=== PATIENT | female | born 1985 | race Caucasian/White ===

== ENCOUNTER 2019-08-12 14:52 | Emergency (ER) | payer OTHER ==
--- OUTSIDE RECORDS SUMMARY | 2019-08-12 15:09 | XMS REPORT | Continuity of Care Document ---
:1985 External Reference #:[id number] Author Name Neal Chappell M.D. Address [address] [place] [id number] Care Team Providers Name Role Phone Mansoor Garcia MD - Otolaryngology Care Team Information Bioengineer [phone] Fiona Jay NP - Nurse Care Team Information Bioengineer Practitioner Problems Active Problems Provider Date Bipolar disorder Fiona Jay FNP Onset: 02/26/2018 Hypothyroidism Aubree Pond DO Onset: 03/31/2015 Cyst of ovary Aubree Wheeler RPAC Onset: 10/19/2014 Cigarette smoker Aubree Wheeler RPAC Onset: 10/19/2014 Sacroiliac joint pain Aubree Wheeler RPAC Onset: 09/29/2014 Purpuric disorder Aubree Pond DO Onset: 03/31/2015 Abdominal aortic aneurysm Fiona Jay FNP Onset: 07/26/2016 Note: 4.2 CM Document: 07/26/16 - CT Angio Chest W/ IV Contrast Document: 09/25 - CT Angio Chest Document: 12/16/17 - CT Angio Chest 4.3 cm Document: 03/23/18 - CT Angio Chest 3.8 cm 04/2019 Document: 04/17/19 - CT Angio Chest Bipolar I disorder, most recent episode Fiona Jay FNP Onset: 05/2018 hypomanic Panic disorder without agoraphobia Fiona Jay FNP Onset: 2017 Social History Type Date Description Comments Sex Unknown Tobacco Use Start: Unknown Patient is a current cigarette smoker, smokes every day Tobacco Use Start: Unknown Current Cigarette Smoker 5-10 Cigarettes Daily ETOH Use Denies alcohol use Tobacco Use Start: 11/10/10 Light tobacco smoker (10 Has quit in the or fewer cigarettes/day) past, cold turkey for pregnancies. Longest time quit x 2 months. Tried patches = allergic reaction. Chantix = rahul & night espinoza. Recreational Drug Use Denies Drug Use Smoking Status Reviewed: 06/08/18 Light tobacco smoker (10 Has quit in the or fewer cigarettes/day) past, cold turkey for pregnancies. Longest time quit x 2 months. Tried patches = allergic reaction. Chantix = rahul & night espinoza. Allergies, Adverse Reactions, Alerts Description No Known Drug Allergies Medications Active Medications SIG Qnty Indications Ordering Provider Date Buspirone HCL take 1 to 2 90tabs F41.0 Misty, 04/27/2018 5mg Tablets tablet by mouth Fiona, three times a [employer]ALL [employer]SEM[employer]ER day as needed *for anxiety and panic Levothyroxine Sodium 1 by mouth every Mansoor Garcia MD 03/17/2018 day *in place of 125mcg Tablets 100 mcg dose Fluoxetine HCL take 1 capsule 30caps F31.0 Misty, 07/17/2016 20mg by mouth once Jennifermoise, Capsules daily [employer]ALL [employer]ER Pantoprazole Sodium Take 1 Tablet By Unknown 40mg Mouth Twice Tablets DR Daily Nexium 24HR 1 by mouth every Unknown 20mg Capsules day DR History Medications Lorazepam 1/2 to 1 tablet 15tabs F41.0 Fiona Jay, 02/12/2019 - 0.5mg by mouth as [employer]ALL ASSEM[employer]ER 08/02/2019 Tablets needed panic attack Reference #: [id number] Medications Administered in Office Medication SIG Qnty Indications Ordering Provider Date PPD Injection Family Nurse 02/27/2018 Immunizations CPT Code Status Date Vaccine Lot # [id number] Given 02/26/2018 Tdap injection [id number] Given 12/08/2017 Influenza Virus Vaccine Quadrivalent Iiv4 Split [id number] Preser Free Id [id number] Given 12/20/2015 Influenza Vaccine (Fluzone) Age 3 And Older [id number] Given 07/30/2012 flu vaccination [id number] Refused 11/18/2017 Influenza Virus Vaccine Quadrivalent Iiv4 Split Preser Free Id Vital Signs Date Vital Result Comment 08/02/2019 9:07am BP Systolic 115 mmHg BP Diastolic 81 mmHg Heart Rate 82 /min Height 68 inches 5'8" Weight 172.00 lb BMI (Body Mass Index) 26.1 kg/m2 BSA (Body Surface Area) 1.92 m2 Sidney body weight in kilograms 63 kg O2 % BldC Oximetry 99 % 06/08/2018 1:23pm Height 68 inches 5'8" Weight 174.25 lb BMI (Body Mass Index) 26.5 kg/m2 BSA (Body Surface Area) 1.93 m2 Sidney body weight in kilograms 63 kg Results Test Date Facility Test Result H/L Range Note CBC 07/23/2019 [facility] White Blood 3.7 K/uL Normal 3.1-10.7 1 W/Automated [address] [place] [address] [phone] Red Blood Count 3.83 M/uL Low 3.90-5.40 Hemoglobin 12.8 gm/dL Normal 11.6-15.8 Hematocrit 35.5 % Low 36.0-46.1 Mean Cell Volume 92.7 fl Normal 80.9-99.0 Mean Corpuscular HGB 33.4 pg High 25.9-32.7 Mean Corpuscular HGB Conc 36.1 g/dL High 30.8-34.3 Platelet Count 142 K/uL Low 155-360 Red Cell Distri Width SD 39.4 fl Normal 36-47 Red Cell Distri Width %CV 11.7 % Normal 11.7-14.4 Mean Platelet Volume 9.5 fl Normal 8.9-12.4 Neut% 65.9 % Normal 40.4-72.8 Lymph % 27.1 % Normal 20.0-42.0 Monona % 5.9 % Normal 4.3-13.2 Eo% 0.5 % Normal 0.0-6.6 Bas% 0.3 % Normal 0.0-1.1 Immature Grans 0.3 % Normal 0.0-5.0 NRBC % 0.0 /100WBC < 10/ 100 WBC Neut# 2.46 K/uL Normal 1.8-7.0 Lymph # 1.01 K/uL Normal 1.0-4.0 Monona # 0.22 K/uL Low 0.3-0.9 Eos # 0.02 K/uL Normal 0.0-0.5 Baso # 0.01 K/uL Normal 0.0-0.1 Immature Grans Absolute 0.01 K/uL NRBC # 0.00 K/uL Comprehensive 07/23/2019 [facility] Glucose 82 mg/dL Normal 74-106 Metabolic Panel [address] [place] [address] [phone] BUN 10 mg/dL Normal 7-18 Creatinine 0.8 mg/dL Normal 0.6-1.3 Glom Filtration Rate, Estimate >60 mL/min >60 If >60 mL/min >60 2 BUN/Creat 12.5 ratio Sodium 140 mmol/L Normal 136-145 Potassium 3.9 mmol/L Normal 3.5-5.1 Chloride 112 mmol/L High 98-107 Carbon Dioxide 24 mmol/L Normal 21-32 Anion Gap 4 mEq/L Low 8-16 Calcium 8.3 mg/dL Low 8.5-10.1 Total Protein 6.8 g/dL Normal 6.4-8.2 Albumin 3.4 g/dL Normal 3.4-5.0 Globulin 3.4 g/dL Normal 1.9-4.3 Alb/Glob 1.0 ratio Bilirubin,Total 0.4 mg/dL Normal 0.2-1.0 Sgot/Ast 9 U/L Low 15-37 3 SGPT/Alt 12 U/L Normal 12-78 Alkaline Phosphatase 64 U/L Normal 45-117 Laboratory test finding 07/23/2019 PSYCHIATRIC Lipase 106 U/L Normal 56-289 [address] [place] [address] [phone] HCG,Serum (Qualitative) NEGATIVE (Negative) 4 Escherichia Coli 07/20/2019 PSYCHIATRIC Nitrofurantoin <=16 Susceptible 5 [address] [place] [address] [phone] Trimethoprim/Sulfamethoxazole <=20 Susceptible Ampicillin >=32 Resistant Cefazolin 8 Susceptible Ampicillin/Sulbactam >=32 Resistant Ciprofloxacin <=0.25 Susceptible Piperacillin/Tazobactam 8 Susceptible Ceftazidime <=1 Susceptible Ceftriaxone <=1 Susceptible Cefepime <=1 Susceptible Levofloxacin <=0.12 Susceptible Imipenem <=0.25 Susceptible Gentamicin <=1 Susceptible Tobramycin <=1 Susceptible Urine Culture 07/20/2019 PSYCHIATRIC Urine Culture ESCHERICHIA COLI Abnormal 6 [address] [place] [id number] [phone] Quantity > 100,000 CFU/mL 7 Urine Culture MIXED URETHRAL F <SEE NOTE> 8 Quantity 10,000 - 50,000 <SEE NOTE> 9 Laboratory test 07/20/2019 PSYCHIATRIC Lipase 125 U/L Normal 56-289 finding [address] [place] [address] [phone] Comprehensive 07/20/2019 PSYCHIATRIC Glucose 92 mg/dL Normal 74-106 Metabolic Panel [address] [place] [address] [phone] BUN 11 mg/dL Normal 7-18 Creatinine 0.8 mg/dL Normal 0.6-1.3 Glom Filtration Rate, Estimate >60 mL/min >60 If >60 mL/min >60 10 BUN/Creat 13.7 ratio Sodium 139 mmol/L Normal 136-145 Potassium 3.7 mmol/L Normal 3.5-5.1 Chloride 108 mmol/L High 98-107 Carbon Dioxide 25 mmol/L Normal 21-32 Anion Gap 6 mEq/L Low 8-16 Calcium 8.4 mg/dL Low 8.5-10.1 Total Protein 7.2 g/dL Normal 6.4-8.2 Albumin 4.0 g/dL Normal 3.4-5.0 Globulin 3.2 g/dL Normal 1.9-4.3 Alb/Glob 1.3 ratio Bilirubin,Total 0.3 mg/dL Normal 0.2-1.0 Sgot/Ast 9 U/L Low 15-37 11 SGPT/Alt 12 U/L Normal 12-78 Alkaline Phosphatase 68 U/L Normal 45-117 Culture If 07/20/2019 PSYCHIATRIC Culture If CULTURE TO 12 Indicated Comment [address] Indicated Comment FOLLO <[place] [address] NOTE> [phone] Source: URINE, CLEAN CAT <SEE NOTE> 13 Ua RFX Micro & 07/20/2019 PSYCHIATRIC Urine Color Light-Yellow Yellow Culture II [address] [place] [address] [phone] Urine Clarity Slightly Cloudy Clear Urine Glucose - Dipstick NEGATIVE mg/dL Negative Urine Bilirubin - Dipstick NEGATIVE Negative Urine Ketone NEGATIVE mg/dL Negative Urine Specific [place] 1.013 Normal 1.010-1.030 Urine Blood NEGATIVE 0-2 Urine PH 5.5 Low 6.5-7.5 Urine Protein - Dipstick NEGATIVE mg/dL Negative Urine Urobilinogen - Dipstick < 2.0 mg/dL < 2.0 Urine Nitrite - Dipstick POSITIVE Abnormal Negative Urine Leuk Esterase SMALL Abnormal Negative Urine RBC 0-2 rbc/hpf 0-2 Urine WBC 21-30 wbc/hpf 0-5 Urine Epithelial Cells MANY /lpf None Seen 14 Urine Bacteria MANY Abnormal None Seen Urine Mucus MODERATE None Seen Urine Sperm FEW None Seen Source: URINE, CLEAN CAT <SEE NOTE> 15 CBC W/Automated 07/20/2019 [facility] White Blood 5.5 K/uL Normal 3.1-10.[address] Count [place], [place] [id number] [phone] Red Blood Count 3.88 M/uL Low 3.90-5.40 Hemoglobin 13.0 gm/dL Normal 11.6-15.8 Hematocrit 36.2 % Normal 36.0-46.1 Mean Cell Volume 93.3 fl Normal 80.9-99.0 Mean Corpuscular HGB 33.5 pg High 25.9-32.7 Mean Corpuscular HGB Conc 35.9 g/dL High 30.8-34.3 Platelet Count 162 K/uL Normal 155-360 Red Cell Distri Width SD 40.1 fl Normal 36-47 Red Cell Distri Width %CV 11.9 % Normal 11.7-14.4 Mean Platelet Volume 9.9 fl Normal 8.9-12.4 Neut% 61.1 % Normal 40.4-72.8 Lymph % 30.7 % Normal 20.0-42.0 Monona % 6.9 % Normal 4.3-13.2 Eo% 0.9 % Normal 0.0-6.6 Bas% 0.2 % Normal 0.0-1.1 Immature Grans 0.2 % Normal 0.0-5.0 NRBC % 0.0 /100WBC < 10/ 100 WBC Neut# 3.37 K/uL Normal 1.8-7.0 Lymph # 1.69 K/uL Normal 1.0-4.0 Monona # 0.38 K/uL Normal 0.3-0.9 Eos # 0.05 K/uL Normal 0.0-0.5 Baso # 0.01 K/uL Normal 0.0-0.1 Immature Grans Absolute 0.01 K/uL NRBC # 0.00 K/uL CBC W/Automated 04/17/2019 [facility] White 5.5 K/uL Normal 3.1-10.7 16 Diff [address] [facility] [place] [address] Count [phone] Red Blood Count 4.27 M/uL Normal 3.90-5.40 Hemoglobin 13.9 gm/dL Normal 11.6-15.8 Hematocrit 39.1 % Normal 36.0-46.1 Mean Cell Volume 91.6 fl Normal 80.9-99.0 Mean Corpuscular HGB 32.6 pg Normal 25.9-32.7 Mean Corpuscular HGB Conc 35.5 g/dL High 30.8-34.3 Platelet Count 174 K/uL Normal 155-360 Red Cell Distri Width SD 39.4 fl Normal 36-47 Red Cell Distri Width %CV 11.9 % Normal 11.7-14.4 Mean Platelet Volume 10.5 fl Normal 8.9-12.4 Neut% 69.7 % Normal 40.4-72.8 Lymph % 21.0 % Normal 20.0-42.0 Monona % 7.5 % Normal 4.3-13.2 Eo% 0.9 % Normal 0.0-6.6 Bas% 0.5 % Normal 0.0-1.1 Immature Grans 0.4 % Normal 0.0-5.0 NRBC % 0.0 /100WBC < 10/ 100 WBC Neut# 3.81 K/uL Normal 1.8-7.0 Lymph # 1.15 K/uL Normal 1.0-4.0 Monona # 0.41 K/uL Normal 0.3-0.9 Eos # 0.05 K/uL Normal 0.0-0.5 Baso # 0.03 K/uL Normal 0.0-0.1 Immature Grans Absolute 0.02 K/uL NRBC # 0.00 K/uL Comprehensive Metabolic 04/17/2019 PSYCHIATRIC Glucose 69 mg/dL Low 74-[address] [place] [address] [phone] BUN 10 mg/dL Normal 7-18 Creatinine 0.8 mg/dL Normal 0.6-1.3 Glom Filtration Rate, Estimate >60 mL/min >60 If >60 mL/min >60 17 BUN/Creat 12.5 ratio Sodium 138 mmol/L Normal 136-145 Potassium 4.2 mmol/L Normal 3.5-5.1 Chloride 108 mmol/L High 98-107 Carbon Dioxide 25 mmol/L Normal 21-32 Anion Gap 5 mEq/L Low 8-16 Calcium 8.3 mg/dL Low 8.5-10.1 Total Protein 7.6 g/dL Normal 6.4-8.2 Albumin 3.8 g/dL Normal 3.4-5.0 Globulin 3.8 g/dL Normal 1.9-4.3 Alb/Glob 1.0 ratio Bilirubin,Total 0.4 mg/dL Normal 0.2-1.0 Sgot/Ast 15 U/L Normal 15-37 SGPT/Alt 15 U/L Normal 12-78 Alkaline Phosphatase 74 U/L Normal 45-117 Laboratory test 04/17/2019 PSYCHIATRIC Thyroid 5.32 uIU/mL High 0.30-4.[address] [place] [address] Hormone [phone] Protime 04/17/2019 PSYCHIATRIC Protime 13.5 Normal 12.0-14.[address] seconds [place], [place] [id number] [phone] Inr 1.0 Normal 0.9-1.1 18 Anticoagulant Therapy? Unknown Act Partial 04/17/2019 PSYCHIATRIC Act Partial 28.3 seconds Normal 23.4-35.[address] Thrombo Time [place], [place] [id number] [phone] Anticoagulant Therapy? Unknown 1 VOMITING, FEVER SINCE YESTERDAY 2 Note: Persistent reduction for 3 months or more in an eGFR <60 mL/min/1.73 m2 defines CKD. Patients with eGFR values >/=60 mL/min/1.73 m2 may also have CKD if evidence of persistent proteinuria is present. The original MDRD equation for estimated GFR is not valid for patients less than 18 years of age. Additional information may be found at www.kdoqi.org. 3 Values below the stated reference ranges of AST and ALT can be seen in normal populations. Clinical correlation is suggested. 4 Method: Quidel QuickVue One-Step Immunoassay 5 ABD PAIN, VOMITING, DIARRHEA, FEVER, HEADACHE 6 ESCHERICHIA COLI 7 > 100,000 CFU/mL 8 MIXED URETHRAL YANDY 9 10,000 - 50,000 CFU/mL 10 Note: Persistent reduction for 3 months or more in an eGFR <60 mL/min/1.73 m2 defines CKD. Patients with eGFR values >/=60 mL/min/1.73 m2 may also have CKD if evidence of persistent proteinuria is present. The original MDRD equation for estimated GFR is not valid for patients less than 18 years of age. Additional information may be found at www.kdoqi.org. 11 Values below the stated reference ranges of AST and ALT can be seen in normal populations. Clinical correlation is suggested. 12 CULTURE TO FOLLOW 13 URINE, CLEAN CATCH 14 POSSIBLE UROGENITAL CONTAMINATION. 15 URINE, CLEAN CATCH 16 LEGS SWELLING, BRUISES, CP YESTERDAY 17 Note: Persistent reduction for 3 months or more in an eGFR <60 mL/min/1.73 m2 defines CKD. Patients with eGFR values >/=60 mL/min/1.73 m2 may also have CKD if evidence of persistent proteinuria is present. The original MDRD equation for estimated GFR is not valid for patients less than 18 years of age. Additional information may be found at www.kdoqi.org. 18 THERAPEUTIC INR RANGE: 2.0 - 3.0 DVT, Pulmonary embolus, prophylaxis against venous thrombosis or systemic embolization in high risk patients. 2.5 - 3.5 Mechanical heart valves Procedures Description No Information Available Medical Devices Description No Information Available Encounters Description No Information Available Assessments Date Code Description Provider 08/02/2019 R10.12 Left upper quadrant pain Neal Chappell M.D. Plan of Treatment 08/02/2019 - Neal Chappell M.D.R10.12 Left upper quadrant painComments:Start with serology looking for H. pylori and an outside possibility oflyme.Another possibility under consideration would be arrhythmia given the chills and diarrhea she reports along with the change in vision; this could certainly and signify an autonomic response however she doesn't indicate shortness of breath or chest pain or chest pressure.If the H. pylori serology is clear upper endoscopy wouldcertainly be appropriate. Do not suspect biliary tract disease or pathology.Concerned about the lymph node next the adrenal; we' ll sort out with the radiologist best follow-up protocol for this. Functional Status Description No Information Available Mental Status Description No Information Available Referrals Description No Information Available
--- OUTSIDE RECORDS SUMMARY | 2019-08-12 15:09 | XMS REPORT | Continuity of Care Document ---
:1985 External Reference #:[id number] Author Name Mansoor Garcia M.D. (transmitted by agent of provider Selena Graham) Address [address] [place] [address] Problems Description No Information Available Social History Type Date Description Comments Sex Unknown Tobacco Use Start: Unknown currently smokes 1/2 Pack Daily ETOH Use Rare Use Of Alcohol Recreational Drug Use Has Used In Past Allergies, Adverse Reactions, Alerts Description No Known Drug Allergies Medications Active Medications SIG Qnty Indications Ordering Provider Date Seroquel Unknown 50mg Tablets Prozac 1 by mouth every Unknown 20mg Capsules day Buspirone HCL Unknown 5mg Tablets Immunizations Description No Information Available Vital Signs Date Vital Result Comment 07/06/2019 3:13pm Weight 175.00 lb Height 68 inches 5'8" BMI (Body Mass Index) 26.6 kg/m2 BP Systolic 119 mmHg BP Diastolic 84 mmHg Heart Rate 88 /min O2 % BldC Oximetry 98 % Body Temperature 97.6 F Pain Level 0 02/12/2018 9:30am Weight 186.00 lb Height 68 inches 5'8" BMI (Body Mass Index) 28.3 kg/m2 BP Systolic 114 mmHg BP Diastolic 81 mmHg Heart Rate 80 /min O2 % BldC Oximetry 99 % Body Temperature 97.8 F Pain Level 0 Results Test Date Facility Test Result H/L Range Note TSH+Free T4 07/06/2019 [facility] TSH (Thyroid <pending> [address] Stim [place]orm) [place] [address] [phone] Free T4 (Free Thyroxine) <pending> Procedures Description No Information Available Medical Devices Description No Information Available Encounters Description No Information Available Assessments Description No Information Available Plan of Treatment No Information Available Functional Status Description No Information Available Mental Status Description No Information Available Referrals Description No Information Available
[2019-08-12 15:12] VITALS: BP 116/86
[2019-08-12 16:09] LABS: Influenza A Molecular NEGATIVE (Negative); Influenza B Molecular NEGATIVE (Negative)
--- NOTE | 2019-08-12 16:14 | UC ---
Respiratory Complaint HPI - HPI Summary HPI Summary: 34 yo female with a 3-4 day hx of nasal congestion, productive cough and wheezing no fever + severe myalgias no sore throat - History of Current Complaint Chief Complaint: UCGeneralIllness Stated Complaint: COUGH,CONGESTION,FEVER Time Seen by Provider: 08/12/19 15:15 Hx Obtained From: Patient Hx Last Menstrual Period: no menses Onset/Duration: Sudden Onset, Gradual Onset, Lasting Days Timing: Constant Severity Initially: Mild Severity Currently: Moderate Pain Intensity: 6 Pain Scale Used: 0-10 Numeric Character: Cough: Productive Aggravating Factors: Nothing Alleviating Factors: Nothing Associated Signs And Symptoms: Positive: Wheezing, Nasal Congestion, Sinus Discomfort - Allergies/Home Medications Allergies/Adverse Reactions: Allergies Allergy/AdvReac Type Severity Reaction Status Date / Time No Known Allergies Allergy Verified 08/12/19 15:12 PMH/Surg Hx/FS Hx/Imm Hx Previously Healthy: Yes - Surgical History Surgical History: Yes Surgery Procedure, Year, and Place: HYSTERECTOMY 11/20/15, [facility] - Family History Known Family History: Positive: None Negative: Hypertension, Diabetes - Social History Alcohol Use: Occasionally Substance Use Type: None Smoking Status (MU): Heavy Every Day Tobacco Smoker Type: Cigarettes Amount Used/How Often: 1/2 ppd Length of Time of Smoking/Using Tobacco: since age 27 Have You Smoked in the Last Year: Yes - Immunization History Vaccination Up to Date: Yes Review of Systems All Other Systems Reviewed And Are Negative: Yes Constitutional: Positive: Fatigue ENT: Positive: Nasal Discharge, Sinus Congestion. Negative: Sore Throat, Ear Ache Respiratory: Positive: Cough Cardiovascular: Positive: Negative Gastrointestinal: Positive: Negative Genitourinary: Positive: Negative Motor: Positive: Negative Neurovascular: Positive: Negative Musculoskeletal: Positive: Negative, Myalgia - ++++ Neurological: Positive: Headache - mild Psychological: Positive: Negative Physical Exam Triage Information Reviewed: Yes Appearance: Well-Appearing, No Pain Distress, Well-Nourished Vital Signs: Initial Vital Signs Temp 98.2 F 08/12/19 15:09 Pulse 91 08/12/19 15:09 Resp 17 08/12/19 15:09 BP 116/86 08/12/19 15:09 Pulse Ox 100 08/12/19 15:09 Vital Signs Reviewed: Yes Eyes: Positive: Conjunctiva Clear ENT: Positive: Hearing grossly normal, Uvula midline. Negative: Nasal congestion, Nasal drainage, Trismus, Muffled voice, Hoarse voice Dental Exam: Normal Neck: Positive: Supple, Nontender, No Lymphadenopathy Respiratory: Positive: No respiratory distress, Wheezing Cardiovascular: Positive: RRR, No Murmur Musculoskeletal: Positive: ROM Intact, No Edema Neurological: Positive: Alert Psychological Exam: Normal Skin Exam: Normal Diagnostics - Laboratory Lab Results: influenza negative - Radiology No standard instances Radiology Interpretation Completed By: Radiologist Summary of Radiographic Findings: CXR NAD Respiratory Course/Dx - Differential Dx/Diagnosis Provider Diagnosis: Viral bronchitis Discharge ED - Sign-Out/Discharge Documenting (check all that apply): Patient Departure All imaging exams completed and their final reports reviewed: Yes - Discharge Plan Condition: Stable Disposition: HOME Prescriptions: predniSONE [Deltasone 20 MG TAB] 40 mg PO DAILY #8 tab Patient Education Materials: Bronchospasm (ED), Acute Bronchitis (ED), How to Use a Metered-Dose Inhaler and a Spacer (ED) Forms: *Work Release Referrals: Yeny Jay NP [Primary Care Provider] - 4 Days (if not better) - Billing Disposition and Condition Condition: STABLE Disposition: Home
[2019-08-12] MEDS ORDERED: Albuterol HFA INHALER* 8 gm MDI INH ONE (16:18)
[2019-08-12] MEDS ORDERED: predniSONE TAB* 20 MG PO ONE (16:19)
== END 2019-08-12 16:44 | disposition home or self-care (01) ==
LOC: MERGE 14:52 → UCCORT 14:52
DX: J20.8 Acute bronchitis due to other specified organisms (principal); F17.210 Nicotine dependence, cigarettes, uncomplicated
CPT/HCPCS: 71046; 99213; A9270-GY; G0463; J7512

== ENCOUNTER 2020-01-06 08:00 | Emergency (ER) | payer OTHER ==
[2020-01-06 08:23] VITALS: BP 111/76
--- NOTE | 2020-01-06 08:35 | UC ---
Ear Complaint HPI - HPI Summary HPI Summary: 34 yo female with 5 day hx URI symptoms and left otalgia Decreased hearing no f.c no n.v.d - History of Current Complaint Chief Complaint: UCEar Stated Complaint: LEFT EAR SCRATCHY THROAT Time Seen by Provider: 01/06/20 08:34 Hx Obtained From: Patient Hx Last Menstrual Period: no menses Onset/Duration: Sudden Onset, Lasting Days Severity Initially: Moderate Severity Currently: Moderate Pain Intensity: 7 Pain Scale Used: 0-10 Numeric Aggravating Factors: Nothing Alleviating Factors: Nothing Associated Signs/Symptoms: Positive: Hearing Loss, URI Symptoms - Allergies/Home Medications Allergies/Adverse Reactions: Allergies Allergy/AdvReac Type Severity Reaction Status Date / Time No Known Allergies Allergy Verified 08/27/19 09:29 Home Medications: Home Medications Fluoxetine HCl [Prozac] 40 mg PO DAILY 02/10/17 [History Confirmed 01/06/20] Levothyroxine TAB* [Synthroid TAB*] 100 mcg PO DAILY 02/10/17 [History Confirmed 08/12/19] Quetiapine Fumarate [Seroquel] 50 mg PO DAILY 02/10/17 [History Confirmed ] Amoxicillin PO (*) [Amoxicillin 875 MG (*)] 875 mg PO BID #20 tab 01/06/20 [Rx] Fluticasone NASAL SPRAY 50MCG* [Flonase NASAL SPRAY 50MCG*] 2 spray BOTH NARES BID #1 btl 01/06/20 [Rx] Ibuprofen TAB* [Motrin TAB* 400 MG] 400 mg PO Q4H PRN 01/06/20 [History Confirmed 01/06/20] PMH/Surg Hx/FS Hx/Imm Hx Previously Healthy: Yes - Surgical History Surgical History: Yes Surgery Procedure, Year, and Place: HYSTERECTOMY 11/20/15, [facility] - Family History Known Family History: Positive: Hypertension Negative: Diabetes - Social History Alcohol Use: Occasionally Substance Use Type: None Smoking Status (MU): Heavy Every Day Tobacco Smoker Type: Cigarettes Amount Used/How Often: 1/2 ppd Length of Time of Smoking/Using Tobacco: since age 27 Have You Smoked in the Last Year: Yes - Immunization History Vaccination Up to Date: Yes Review of Systems All Other Systems Reviewed And Are Negative: Yes Constitutional: Positive: Negative Skin: Positive: Negative Eyes: Positive: Negative ENT: Positive: Ear Ache, Nasal Discharge, Sinus Congestion Respiratory: Positive: Cough Cardiovascular: Positive: Negative Gastrointestinal: Positive: Negative Genitourinary: Positive: Negative Motor: Positive: Negative Neurovascular: Positive: Negative Musculoskeletal: Positive: Negative Neurological/Mental Status: Positive: Negative Psychological: Positive: Negative Physical Exam Triage Information Reviewed: Yes Appearance: Well-Appearing, No Pain Distress, Well-Nourished Vital Signs: Initial Vital Signs Temp 98.1 F 01/06/20 08:14 Pulse 79 01/06/20 08:14 Resp 20 01/06/20 08:14 BP 111/76 01/06/20 08:14 Pulse Ox 99 01/06/20 08:14 Vital Signs Reviewed: Yes Eyes: Positive: Conjunctiva Clear ENT: Positive: Nasal congestion, TM bulging - l, TM red - l, Uvula midline. Negative: Hearing grossly normal, Nasal drainage, TMs normal, Tonsillar swelling , Tonsillar exudate, Trismus, Muffled voice, Hoarse voice, Sinus tenderness Dental Exam: Normal Neck: Positive: Supple, Nontender, No Lymphadenopathy Respiratory: Positive: Lungs clear, Normal breath sounds, No respiratory distress Cardiovascular: Positive: RRR, No Murmur Musculoskeletal: Positive: No Edema Neurological: Positive: Alert Psychological Exam: Normal Skin Exam: Normal Ear Complaint Course/Dx - Differential Dx/Diagnosis Provider Diagnosis: Left otitis media, Viral URI Discharge ED - Sign-Out/Discharge Documenting (check all that apply): Patient Departure All imaging exams completed and their final reports reviewed: No Studies - Discharge Plan Condition: Stable Disposition: HOME Prescriptions: Amoxicillin PO (*) [Amoxicillin 875 MG (*)] 875 mg PO BID #20 tab Fluticasone NASAL SPRAY 50MCG* [Flonase NASAL SPRAY 50MCG*] 2 spray BOTH NARES BID #1 btl Patient Education Materials: Ear Infection (ED) Referrals: Yeny Jay NP [Primary Care Provider] - 5 Days (if not better) - Billing Disposition and Condition Condition: STABLE Disposition: Home
== END 2020-01-06 09:17 | disposition home or self-care (01) ==
LOC: UCCORT 08:00
DX: J06.9 Acute upper respiratory infection, unspecified (principal); H66.92 Otitis media, unspecified, left ear; F17.210 Nicotine dependence, cigarettes, uncomplicated
CPT/HCPCS: 99212; G0463